=== PATIENT | female | born 1950 | race Caucasian/White ===

== ENCOUNTER 2018-07-01 11:04 | Emergency (ER) | payer OTHER ==
[~2018-07-01] VITALS: Ht 170.2 cm; Wt 56.8 kg
[2018-07-01 11:07] VITALS: Ht 170.2 cm; Wt 56.8 kg
[2018-07-01] MEDS ORDERED: ONDANSETRON 4 MG INJ IV STA ×2 (12:29→15:35)
[2018-07-01] MEDS ORDERED: HYDROmorphONE 1 MG/ML SYG IV STA (12:29)
[2018-07-01] MEDS ORDERED: SOD CHLORIDE 0.9% 1,000 ML IV STA (12:29)
[2018-07-01] MEDS ORDERED: METHYLPREDNISOLONE 125 MG INJ IV ONE (12:30)
[2018-07-01] MEDS ORDERED: ZOLP10TA5 PO (13:59)
[2018-07-01] MEDS ORDERED: TRAM50TA PO (13:59)
[2018-07-01] MEDS ORDERED: LYR75 PO (13:59)
[2018-07-01] MEDS ORDERED: MET25 PO (14:00)
[2018-07-01] MEDS ORDERED: ACET1TAB40 PO (14:01)
[2018-07-01] MEDS ORDERED: CLON1TAB13 PO (14:01)
[2018-07-01] MEDS ORDERED: ETAN50PE SQ (14:03)
[2018-07-01] MEDS ORDERED: SOD CHLORIDE 0.9% 100 ML ONE (14:27)
[2018-07-01] MEDS ORDERED: IOHEXOL 300MG/ML 150 ML BTL ONE (14:27)
[2018-07-01] MEDS ORDERED: ONDA4TAB14 PO (15:25)
[2018-07-01] MEDS ORDERED: HYDR-3980 PO (15:25)
[2018-07-01] MEDS ORDERED: PRED20TA PO (15:25)
--- NOTE | 2018-07-01 15:28 | ERD ---
ER Documentation Chief Complaint Chief Complaint flank pain & vomitting x2 days HPI This is a 68-year-old female who complains of 2 days of off-and-on nonbilious nonbloody nausea and vomiting this weekend. She says that this illness has exacerbated her psoriatic arthritis and she is having bilateral knee aching pain due to her recurrent flareups that she will get from time to time. She is a very poor historian. Denies any chest pain or shortness of breath or fever. No dysuria or hematuria. Denies any abdominal pain but will have some cramps before she has her vomiting that get resolved after vomiting. ROS All systems reviewed and are negative except as per history of present illness. Medications Home Meds Active Scripts Prednisone* (Prednisone*) 20 Mg Tab, 60 MG PO DAILY for 5 Days, TAB Prov:TYRESE SWEET DO 07/01/18 Ondansetron (Ondansetron Odt) 4 Mg Tab.rapdis, 4 MG PO Q6H PRN for NAUSEA AND/OR VOMITING, #10 TAB Prov:TYRESE SWEET DO 07/01/18 Hydrocodone/Acetaminophen ([place] 10-325 Tablet) 1 Each Tablet, 1 TAB PO Q6H PRN for PAIN, #16 TAB Prov:TYRESE SWEET DO 07/01/18 Reported Medications Etanercept (Enbrel) 50 Mg/1 Ml Pen.injctr, 50 MG SQ Q7D 07/01/18 Clonazepam* (Clonazepam*) 1 Mg Tablet, 1 MG PO BID PRN for ANXIETY, TAB 07/01/18 Acetaminophen with Codeine (Acetaminophen-Cod #3 Tablet) 1 Each Tablet, 1 TAB PO Q6H PRN for NEEDED, #20 TAB 07/01/18 Methotrexate* (Methotrexate*) 2.5 Mg Tab, 2.5 MG PO DAILY, TAB 07/01/18 Zolpidem Tartrate* (Zolpidem Tartrate*) 10 Mg Tablet, 10 MG PO QHS PRN for INSOMNIA, #30 TAB 07/01/18 Tramadol Hcl* (Ultram*) 50 Mg Tablet, 50 MG PO BID PRN for PAIN, TAB 07/01/18 Pregabalin* (Lyrica*) 75 Mg Capsule, 75 MG PO BID, CAP 07/01/18 Allergies Allergies: Coded Allergies: Tetanus Vaccines and Toxoid (Verified Allergy, Mild, \, 07/01/18) PMhx/Soc History of Surgery: Yes (B/L KNEE ) Anesthesia Reaction: No Hx Neurological Disorder: No Hx Respiratory Disorders: No Hx Cardiac Disorders: No Hx Psychiatric Problems: No Hx Miscellaneous Medical Probl: Yes (ARTHRITIS ) Hx Alcohol Use: No Hx Substance Use: No Hx Tobacco Use: No Smoking Status: Never smoker FmHx Family History: No coronary disease Physical Exam Vitals Vital Signs Date Temp Pulse Resp B/P (MAP) Pulse Ox O2 O2 Flow FiO2 Time Delivery Rate 07/01/18 98.6 92 18 139/89 100 Room Air 13:30 (106) 07/01/18 100 18 148/101 100 Room Air 12:41 (117) 07/01/18 97.9 99 18 187/89 98 11:07 (121) Physical Exam Const: Well-developed, well-nourished Head: Atraumatic, normocephalic Eyes: Normal Conjunctiva, PERRLA, EOMI, normal sclera, no nystagmus ENT: Normal External Ears, Nose and Mouth, moist mucus membranes. Neck: Full range of motion. No meningismus, no lymphadenopathy. Resp: Clear to auscultation bilaterally, no wheezing, rhonchi, rales Cardio: Regular rate and rhythm, no murmurs, S1 S2 present Abd: Soft, non tender x 4, non distended. Normal bowel sounds, no guarding or rebound, no pulsitile abdominal masses or bruits Skin: No petechiae or rashes, no ecchymosis , no maculopapular rash Back: No midline or flank tenderness Ext: No cyanosis, or edema, FROM x 4, normal inspection, neurovascularly intact x 4, mild tenderness in the knees but no signs of septic arthritis Neur: Awake and alert, STR 5/5 x 4, sensation intact x 4, no focal findings, cerebellum intact Psych: Normal Mood and Affect Result Diagram: 07/01/18 1215 07/01/18 1215 Results 24 hrs Laboratory Tests Test 07/01/18 12:15 07/01/18 13:41 White Blood Count 8.5 10^3/ul Red Blood Count 4.41 10^6/ul Hemoglobin 14.1 g/dl Hematocrit 42.1 % Mean Corpuscular Volume 95.5 fl Mean Corpuscular Hemoglobin 32.0 pg Mean Corpuscular Hemoglobin Concent 33.5 g/dl Red Cell Distribution Width 14.2 % Platelet Count 272 10^3/UL Mean Platelet Volume 11.5 fl Immature Granulocytes % 0.400 % Neutrophils % 77.5 % Lymphocytes % 17.4 % Monocytes % 4.5 % Eosinophils % 0.0 % Basophils % 0.2 % Nucleated Red Blood Cells % 0.0 /100WBC Immature Granulocytes # 0.030 10^3/ul Neutrophils # 6.6 10^3/ul Lymphocytes # 1.5 10^3/ul Monocytes # 0.4 10^3/ul Eosinophils # 0.0 10^3/ul Basophils # 0.0 10^3/ul Nucleated Red Blood Cells # 0.0 10^3/ul Sodium Level 139 mmol/L Potassium Level 3.7 mmol/L Chloride Level 99 mmol/L Carbon Dioxide Level 24 mmol/L Anion Gap 16 Blood Urea Nitrogen 11 mg/dl Creatinine 0.55 mg/dl Est Glomerular Filtrat Rate mL/min > 60 mL/min Glucose Level 99 mg/dl Calcium Level 10.5 mg/dl Total Bilirubin 0.4 mg/dl Direct Bilirubin 0.00 mg/dl Indirect Bilirubin 0.4 mg/dl Aspartate Amino Transf (AST/SGOT) 36 IU/L Alanine Aminotransferase (ALT/SGPT) 17 IU/L Alkaline Phosphatase 88 IU/L Troponin I < 0.012 ng/ml Total Protein 8.4 g/dl Albumin 5.0 g/dl Globulin 3.40 g/dl Albumin/Globulin Ratio 1.47 Lipase 197 U/L Urine Color COLORLESS Urine Clarity CLEAR Urine pH 6.0 Urine Specific [place] 1.003 Urine Ketones 2+ mg/dL Urine Nitrite NEGATIVE mg/dL Urine Bilirubin NEGATIVE mg/dL Urine Urobilinogen NEGATIVE mg/dL Urine Leukocyte Esterase TRACE Darin/ul Urine Microscopic RBC 1 /HPF Urine Microscopic WBC 2 /HPF Urine Hemoglobin NEGATIVE mg/dL Urine Glucose NEGATIVE mg/dL Urine Total Protein NEGATIVE mg/dl Current Medications Medications Dose Sig/Griffin Start Time Status Last (Trade) Ordered Route PRN Stop Time Admin Dose Reason Admin Sodium 1,000 ml @ Q1H STAT 07/01/18 DC 07/01/18 Chloride 1,000 mls/hr IV 12:29 12:39 07/01/18 13:28 1 mg ONCE STAT 07/01/18 DC 07/01/18 Hydromorphone IV 12: 12:39 HCl 07/01/18 12:32 (Dilaudid) Ondansetron 4 mg ONCE STAT 07/01/18 DC 07/01/18 HCl (Zofran IV 12: 12:39 Inj) 07/01/18 12:32 125 mg ONCE ONCE 07/01/18 DC 07/01/18 Methylprednis IV 12:30 12:39 olone Sodium 07/01/18 12:32 Succinate (Solu-Medrol) IV Flush 10 ml STK-MED 07/01/18 DC 07/01/18 (NS 10 ml) ONCE .ROUTE 14: 14:42 07/01/18 14:28 Sodium 100 ml @ ud STK-MED 07/01/18 DC 07/01/18 Chloride ONCE .ROUTE 14:27 14:42 07/01/18 14:28 Iohexol 150 ml STK-MED 07/01/18 DC 07/01/18 (Omnipaque ONCE .ROUTE 14: 14:42 300mg/ ml) 07/01/18 14:28 Procedures/MDM Ordering MD: TYRESE SWEET DO Location: E/R Room/Bed: PROCEDURE: CT Abdomen and Pelvis with contrast. CLINICAL INDICATION: Abdominal pain. TECHNIQUE: CT scan of the abdomen and pelvis with contrast was performed on a multi-detector high-resolution CT scanner. The patient was scanned following the uncomplicated intravenous administration of 90 cc of Omnipaque 300. Coronal and sagittal reformatted images were obtained from the axial source images. One or more of the following dose reduction techniques were used: Automated exposure control, adjustment of the mA and/or kV according to patient size, use of iterative reconstruction technique. Images were reviewed on a high-resolution PACS workstation. DICOM images are available. The total exam CTDI equals 6.21 mGy and the total exam DLP equals 298.39 mGy-cm. COMPARISON: None available. FINDINGS: CT ABDOMEN: Visualized lung bases: No significant infiltrate or pleural/pericardial effusion. The heart size is normal. Right breast implant is partially imaged. Liver: The liver is normal in size and demonstrates normal overall enhancement. No evidence of solid hepatic mass or intrahepatic ductal dilatation. Patent portal vein. Gallbladder and bile ducts: Unremarkable. Spleen: Unremarkable. Pancreas: Unremarkable. No ductal dilatation, mass, or peripancreatic stranding. Adrenal glands: Unremarkable. Kidneys: There is right renal cortical scarring and asymmetrically small right renal size. The left kidney is unremarkable. No hydronephrosis, stones, or solid lesions seen. Vasculature: Heavy aortoiliac atherosclerosis is present. No abdominal aortic aneurysm. Negative IVC. Lymph nodes: No adenopathy. GI: No hiatal hernia. There is no evidence of inflamed appendix. Negative terminal ileum. Negative rectum. No evidence of obstruction. Negative sigmoid colon. Peritoneal cavity: There is a small fat-containing umbilical hernia. No free fluid or free air. CT PELVIS: : Normal appearing bladder, distal ureters, and ureterovesiculal junctions. The pelvic organs are unremarkable. Peritoneal cavity: There is trace nonspecific pelvic free fluid. No free air. Lymph nodes: No adenopathy. Osseous structures: Moderate degenerative changes are present as L3-L4. No acute osseous injury. No lytic or blastic lesions. Other: None. IMPRESSION: 1. No evidence of abdominopelvic acute inflammatory process, mass, or lymphadenopathy. 2. Heavy aortic atherosclerosis. 3. Asymmetric small right kidney and right renal cortical scarring, consistent with atrophy. 4. Small fat-containing umbilical hernia. RPTAT: JJ .Hermelindo Barros MD, Date Time Electronically viewed and signed by .Hermelindo Barros MD, MD on 07/01/2018 14:50 .A/ CC: TYRESE SWEET DO [id number] Ordering MD: TYRESE SWEET DO Location: E/R Room/Bed: PROCEDURE: XR Chest. CLINICAL INDICATION: chest pain TECHNIQUE: Single frontal view of the chest was obtained COMPARISON: None FINDINGS: The heart and mediastinum are within normal limits. The lungs are clear. There is no pleural effusion or pneumothorax. RPTAT: AA IMPRESSION: No acute disease. .Raudel Winter MD, MD Date Time Electronically viewed and signed by .Raudel Winter MD, MD on 07/01/2018 15:01 .S/ CC: TYRESE SWEET DO [id number] Patient has no acute pathology. We will discharge home on Zofran prednisone and [place]. The patient likely has some type of viral illness or food borne illness Departure Diagnosis: Primary Impression: Vomiting Vomiting type: unspecified Vomiting Intractability: unspecified Nausea presence: with nausea Qualified Codes: R11.2 - Nausea with vomiting, unspecified Additional Impression: Arthritis Condition: Stable Patient Instructions: Vomiting (6Y-Adult) TYRESE SWEET DO Jul 01, 2018 15:28
[2018-07-01 19:41] VITALS: BP 142/64; PULSE 93; RESP 16
== END 2018-07-01 19:41 | disposition home or self-care (01) ==
LOC: E/R 11:04
DX: M19.90 Unspecified osteoarthritis, unspecified site (principal); R11.2 Nausea with vomiting, unspecified; R40.2142 Coma scale, eyes open, spontaneous, at arrival to emergency department; R40.2252 Coma scale, best verbal response, oriented, at arrival to emergency department; R40.2362 Coma scale, best motor response, obeys commands, at arrival to emergency department
CPT/HCPCS: 36415; 71045; 74177; 80053; 81001; 83690; 84484; 85025; 96374; 96375; 96376; 99285; J1170; J2405; J2930; J7030; Q9967